=== PATIENT | female | born 1980 | race Caucasian/White ===

== ENCOUNTER 2025-06-04 09:36 | Emergency (ER) | payer OTHER ==
[2025-06-04] MEDS: Lidocaine/Epineph/Tetracaine 3 ML Syringe TOP ONE (10:17)
[2025-06-04] MEDS: Lidocaine 1% with EPINEPHrine 1:100,000 20 ML MDV INJECT ONE (10:59)
== END 2025-06-04 11:12 | disposition home or self-care (01) ==
LOC: JP.ED 09:36
DX: S01.551A Open bite of lip, initial encounter (principal); Z88.1 Allergy status to other antibiotic agents; Z79.899 Other long term (current) drug therapy; W54.0XXA Bitten by dog, initial encounter
CPT/HCPCS: 12011; 99283; A9270; J2004